=== PATIENT | female | born 1960 ===

== ENCOUNTER 2016-12-23 07:39 | Day surgery (SDC) | payer BC ==
[2016-12-23] MEDS ORDERED: Lactated Ringer's 1,000 ML IV ONE (08:17)
[2016-12-23] MEDS ORDERED: Propofol 10 mg/ml Inj (20 ML) ONE ×3 (09:00→09:40)
[2016-12-23 10:09] VITALS: TEMP 97
[2016-12-23 10:27] VITALS: BP 131/78; PULSE 71; RESP 16; O2SAT 99
== END 2016-12-23 10:37 | disposition home or self-care (01) ==
LOC: H.ENDO 07:39
PROVIDERS: ATTEND Internal Medicine Gastroenterology
DX: Z12.11 Encounter for screening for malignant neoplasm of colon (principal); K64.8 Other hemorrhoids; D12.3 Benign neoplasm of transverse colon; D12.4 Benign neoplasm of descending colon; D12.2 Benign neoplasm of ascending colon
CPT/HCPCS: 45381; 45385; 82948; 88305; J2704; J3010; J7120